=== PATIENT | male | born 1990 | race Caucasian/White ===

== ENCOUNTER 2017-03-05 22:26 | Inpatient (IN) | payer OTHER ==
--- NOTE | 2017-03-05 23:31 | ED PDOC ---
HPI: Psych/Substance Abuse Time Seen by Provider: 03/05/17 22:45 Chief Complaint (Nursing): Psychiatric Evaluation Chief Complaint (Provider): depressed History Per: Patient History/Exam Limitations: no limitations Onset/Duration Of Symptoms: Days Current Symptoms Are (Timing): Still Present Additional History Per: Patient Additional Complaint(s): 27 y/o male history of depression, anxiety presents for crisis eval. Patient states since he stopped taking his psych medications (because he could not afford them) he has been depressed. Patient states he moved here from [place] and since then has no drive or motivation to get a job or go to work when he has a job. He notes suicidal ideations intermittently, none at present. Denies suicidal/homicidal ideations, hallucinations, drug/alcohol use , acute medical complaints. Past Medical History Reviewed: Historical Data, Nursing Documentation, Vital Signs Vital Signs: Last Vital Signs Temp 99.7 F H 03/05/17 22:31 Pulse 79 03/05/17 22:31 Resp 18 03/05/17 22:31 BP 156/74 H 03/05/17 22:31 Pulse Ox 99 03/05/17 22:31 - Medical History PMH: Anxiety, Depression - Surgical History Surgical History: No Surg Hx - Family History Family History: States: No Known Family Hx - Living Arrangements Living Arrangements: With Family - Social History Current smoker - smoking cessation education provided: No Alcohol: None Drugs: Denies - Allergies Allergies/Adverse Reactions: Allergies Allergy/AdvReac Type Severity Reaction Status Date / Time No Known Allergies Allergy Verified 03/05/17 22:31 Review of Systems ROS Statement: Except As Marked, All Systems Reviewed And Found Negative Psych: Positive for: Depression Physical Exam - Reviewed Nursing Documentation Reviewed: Yes Vital Signs Reviewed: Yes - Physical Exam Appears: Positive for: Well, Non-toxic, No Acute Distress Head Exam: Positive for: ATRAUMATIC, NORMAL INSPECTION, NORMOCEPHALIC Skin: Positive for: Normal Color Eye Exam: Positive for: Normal appearance ENT: Positive for: Normal ENT Inspection Cardiovascular/Chest: Positive for: Regular Rate, Rhythm Respiratory: Positive for: Normal Breath Sounds Gastrointestinal/Abdominal: Positive for: Normal Exam Back: Positive for: Normal Inspection Extremity: Positive for: Normal ROM Neurologic/Psych: Positive for: Alert, Oriented - Laboratory Results Result Diagrams: 03/06/17 00:53 03/06/17 00:53 - ECG O2 Sat by Pulse Oximetry: 99 Pulse Ox Interpretation: Normal - Progress ED Course And Treament: Patient evaluated by direct support worker; to be admitted as per Dr. Garcia labs, urine ordered Medical Decision Making Medical Decision Making: Patient medically stable for psych admission Disposition - Clinical Impression Clinical Impression: Depression - Patient ED Disposition Is Patient to be Admitted: Yes - Disposition Disposition Time: 01:46 Condition: STABLE
[2017-03-06 00:58] LABS: BASO % 0.2 % (0.0-2.0); EOS % 0.4 % (0.0-4.0); HEMATOCRIT 45.6 % (35.0-51.0); LYMPH # 0.7 K/uL (1.0-4.3); LYMPH % 13.7 % (20.0-40.0); MEAN CELL VOLUME 89.8 fl (80.0-94.0); MEAN CORPUSCULAR HEMOGLOBIN 29.9 pg (27.0-31.0); MEAN CORPUSCULAR HGB CONC 33.3 g/dL (33.0-37.0); MEAN PLATELET VOLUME 10.2 fl (7.2-11.7); MONO % 20.4 % (0.0-10.0); NEUT # 3.3 K/uL (1.8-7.0); NEUT % 65.3 % (50.0-75.0); NRBC % 0.1 % (0.0-0.0); PLATELET COUNT 113 K/uL (130-400); RED CELL DISTRIBUTION WIDTH 13.4 % (11.5-14.5); WHITE BLOOD COUNT 5.1 K/uL (4.8-10.8)
[2017-03-06 01:06] LABS: ALB/GLOB RATIO 1.7 (1.0-2.1); ALCOHOL SERUM < 10 mg/dl (0-10); ALKALINE PHOSPHATASE 62 U/L (38-126); ALT/SGPT 40 U/L (21-72); AST/SGOT 45 U/L (17-59); BILIRUBIN,TOTAL 0.7 mg/dl (0.2-1.3); BLOOD UREA NITROGEN 10 mg/dl (9-20); CALCIUM 9.4 mg/dL (8.4-10.2); CARBON DIOXIDE 28 mmol/L (22-30); CHLORIDE 102 mmol/L (98-107); GFR AFRICAN-AMERICAN > 60; GLUCOSE,RANDOM 106 mg/dL (75-110); SODIUM 139 mmol/l (132-148); TOTAL PROTEIN 6.9 G/DL (6.3-8.2)
[2017-03-06 01:35] LABS: RBC URINE 1 /hpf (0-3); URINE BACTERIA RARE (<OCC); URINE BILIRUBIN NEGATIVE (NEGATIVE); URINE BLOOD NEGATIVE (NEGATIVE); URINE COLOR YELLOW (YELLOW); URINE GLUCOSE (UA) NEG (Normal); URINE KETONE NEGATIVE (NEGATIVE); URINE LEUKOCYTE ESTERASE NEG Leu/uL (Negative); URINE PROTEIN NEGATIVE (NEGATIVE); URINE UROBILINOGEN 0.2-1.0 mg/dL (0.2-1.0); WBC URINE 2 /hpf (0-5)
[2017-03-06 01:52] VITALS: O2SAT 99
--- NOTE | 2017-03-06 03:13 | PCM.BM ---
<Stefani Allison - Last Filed: 03/06/17 03:10> Treatment Plan Problems - Problems identified on initial assessmt Medication nonadherence Date Initiated: 03/06/17 Time Initiated: 03:11 Assessment reference: NA Status: Active Hopelessness/Helplessness Date Initiated: 03/06/17 Time Initiated: 03:12 Assessment reference: NA Status: Active Social Isolation Date Initiated: 03/06/17 Time Initiated: 03:13 Assessment reference: NA Status: Active Treatment assets and liabiliti Patient Assests: cooperative, educated, ADL independent, physically healthy, negotiates basic needs, cognitively intact Patient Liabilities: financial problems, substance abuse, other (Unemployed) - Milieu Protocol Maintain good personal hygiene: daily Encourage regular showers, daily Remind patient to perform daily oral care, every shift Assist patient to perform ADL's Maintain personal safety: every shift Educate patient to report safety concerns to staff, every shift Monitor environment for contraband/sharps Medication safety: Monitor for expected outcome, potential side effects: every shift, Assess barriers to learning: every shift, Assess readiness for medication education: every shift <Mac Lynn - Last Filed: 03/06/17 15:50> Family Contact Family involvement: Family/SO is involved Family contact: Patient agrees to contact, Family has been contacted by patient , Telephone contact initiated by staff Family contact name: Alvin White (Uncle, ) Family contacted how many times per week?: 2 - Goals for Treatment Patient goals for treatment: Hold a job, make better decisions. Discharge/Continuing Care - Education Needs Education Needs: Family Medication, Patient Medication, Patient Coping Skills, Patient Anger Management skills, Patient Community resources, Patient Aftercare Safety Plan - Discharge Discharge Criteria: Tolerates medication w/o severe side effects, Free of agitation, Normal sleep pattern Discharge to:: Other - Treatment Team Participation Was Patient/Family/SO present at Treatment Team Meeting: Yes <Sandra Whitley - Last Filed: 03/09/17 11:51> Discharge/Continuing Care - Additional Comments 03/09/17 11:47 Pt seen and discussed in team meeting. Reason for admission discussed. pt's progress on unit reviewed. Pt's medications reviewed and discussed. Pt's social and medical issues discussed. Pt relocated from [place] to [place]. Pt is currently homeless and from time to time staying with his uncle. Pt has limited support system. Pt informed that he is scheduled for discharge tomorrow, March 10. Pt agreeable. [employer] discussed referral to [facility] and agreeable. [facility] explained to pt. Pt also provided display card writer with verbal authorization to contact him uncleAlvin ([phone]) and inform him of discharge and after care. - Treatment Team Participation Discussed with Family/SO: No
[2017-03-06] MEDS ORDERED: DiphenhydrAMINE 50 mg/ml Inj IM PRN (03:24)
[2017-03-06] MEDS ORDERED: Alum-Mag Hydrox-Simethicone Susp (30 mL) PO PRN (03:24)
[2017-03-06] MEDS ORDERED: Magnesium Hydroxide Susp 30 ml UD PO PRN (03:24)
[2017-03-06 04:16] LABS: EOSINOPHIL 3 % (0-7); NEUTROPHIL 65 % (42-75); REACTIVE LYMPHOCYTES 1 % (0-0); TOTAL CELLS COUNTED 100
[2017-03-06 07:10] LABS: T4 7.62 ug/dl (5.5-11.0)
[2017-03-06 07:23] LABS: THYROID STIMULATING HORMONE 0.77 mIU/ML (0.46-4.68)
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
--- NOTE | 2017-03-06 17:28 | CP.PCM.CON ---
History of Present Illness - History of Present Illness History of Present Illness: 27 yo male with history of depression admitted in psyche unit because of worsening depression and suicidal thoughts. Review of Systems - Review of Systems All systems: reviewed and no additional remarkable complaints except (aside from those mentioned above, 12 point system review were negative by me) Past Patient History - Tetanus Immunizations Tetanus Immunization: Unknown - Past Medical History & Family History Past Medical History?: No Past Family History: Reviewed and not pertinent - Past Social History Smoking Status: Current Some Days Smoker Alcohol: Occasional Drugs: Cannabis (last used was a month ago) Home Situation {Lives}: Other (with uncle) - CARDIAC Hx Cardiac Disorders: No Hx Hypertension: No - PULMONARY Hx Respiratory Disorders: No Hx Tuberculosis: No - NEUROLOGICAL Hx Neurological Disorder: No HX Cerebrovascular Accident: No Hx Seizures: No - HEENT Hx HEENT Problems: No - RENAL Hx Chronic Kidney Disease: No - ENDOCRINE/METABOLIC Hx Endocrine Disorders: No - HEMATOLOGICAL/ONCOLOGICAL Hx Blood Disorders: No Hx Cancer: No Hx Human Immunodeficiency Virus (HIV): No - GENITOURINARY/GYNECOLOGICAL Hx Sexually Transmitted Disorders: No - PSYCHIATRIC Hx Anxiety: Yes Hx Depression: Yes Hx Substance Use: Yes (marijuana) Meds Allergies/Adverse Reactions: Allergies Allergy/AdvReac Type Severity Reaction Status Date / Time No Known Allergies Allergy Verified 03/05/17 22:31 - Medications Medications: Current Medications Acetaminophen (Tylenol 325mg Tab) 650 mg PO Q4 PRN PRN Reason: Pain, moderate (4-7) Al Hydrox/Mg Hydrox/Simethicone (Maalox Plus 30 Ml) 30 ml PO Q4 PRN PRN Reason: Dyspepsia Bupropion HCl (Wellbutrin Sr 150 Mg) 150 mg PO DAILY RUBY Diphenhydramine HCl (Benadryl) 50 mg IM Q6 PRN PRN Reason: Extrapyramidal S/S Unable PO Diphenhydramine HCl (Benadryl) 50 mg PO HS PRN PRN Reason: Sleep Haloperidol (Haldol) 5 mg PO Q4 PRN PRN Reason: Agitation Haloperidol Lactate (Haldol) 5 mg IM Q4 PRN PRN Reason: Agitation, Unable to Take PO Lorazepam (Ativan) 2 mg IM Q4 PRN PRN Reason: Anxiety/Agitation,Unable PO Lorazepam (Ativan) 2 mg PO Q4 PRN PRN Reason: agitation/anxiety Magnesium Hydroxide (Milk Of Magnesia) 30 ml PO HS PRN PRN Reason: Constipation Mirtazapine (Remeron) 15 mg PO HS RUBY Nicotine (Nicoderm Cq) 1 patch TD DAILY RUBY Last Admin: 03/06/17 15:10 Dose: 1 patch Physical Exam - Constitutional Appears: No Acute Distress - Head Exam Head Exam: ATRAUMATIC - Eye Exam Eye Exam: absent: Scleral icterus - ENT Exam ENT Exam: Mucous Membranes Moist - Neck Exam Neck exam: Negative for: Meningismus - Respiratory Exam Respiratory Exam: absent: Rhonchi, Wheezes, Respiratory Distress - Cardiovascular Exam Cardiovascular Exam: REGULAR RHYTHM, +S1, +S2 - GI/Abdominal Exam GI & Abdominal Exam: Soft. absent: Tenderness - Rectal Exam Rectal Exam: Deferred - Extremities Exam Extremities exam: Negative for: pedal edema - Back Exam Back exam: NORMAL INSPECTION - Neurological Exam Neurological exam: Alert, Oriented x3 - Psychiatric Exam Psychiatric exam: Normal Affect - Skin Skin Exam: Dry, Intact Results - Vital Signs Recent Vital Signs: Last Vital Signs Temp 96.9 F L 03/06/17 16:18 Pulse 58 L 03/06/17 16:18 Resp 18 03/06/17 16:18 BP 136/77 03/06/17 16:18 Pulse Ox 99 03/06/17 01:52 - Labs Result Diagrams: 03/06/17 00:53 03/06/17 00:53 Labs: Laboratory Results - last 24 hr 03/06/17 03/06/17 06:37 06:37 Hemoglobin A1c 5.1 Triglycerides 52 Cholesterol 112 LDL Cholesterol Direct 53 HDL Cholesterol 42 Thyroxine (T4) 7.62 Total T3 1.16 L TSH 3rd Generation 0.77 Assessment & Plan (1) Depression Status: Acute Comment: psyche is managing
[2017-03-07] MEDS: buPROPion SR 150 MG TABLET PO SCH (09:05)
--- NOTE | 2017-03-07 11:11 | PCM.PYCHPN ---
Psychiatric Progress Note - Psychiatric Progress Note Patient seen today, length of contact: Patient evaluated, case discussed with team, chart reviewed Patient Chief Complaint: "I'm okay" Problems Identified/Issues Discussed: No significant events overnight. Patient reports that he feels "okay." He states that he has chronic depression and that his mood fluctuates. No current suicidal thoughts at this time. No hallucinations. No adverse effects to medications reported. Medication Change: No Medical Record Reviewed: Yes Mental Status Examination - Cognitive Function Orientation: Person, Place, Situation, Time Memory: Intact Attention: WNL Concentration: WNL Association: WNL Fund of Knowledge: WNL - Mood Mood: Depressed - Affect Affect: Depressed - Speech Speech: Appropriate - Formal Thought Process Formal Thought Process: No Impairment Psychotic Thoughts and Behaviors: Denies AH/VH/paranoia/delusions - Suicidal Ideation Suicidal Ideation: No - Homicidal Ideation Homicidal Ideation: No Goal/Treatment Plan - Goal/Treatment Plan Need for Continued Stay: Remain at risks for inpatient hospitalization, Severe depression anxiety Progress Toward Problem(s) and Goals/Treatment Plan: Major Depressive Disorder, Recurrent -Continue Wellburtrin SR 150 mg PO Daily -Continue Remeron 15 mg PO HS -Individual and group therapy -Disposition planning Estimated Date of D/C: 03/10/17
[2017-03-07 16:34] VITALS: RESP 18
[2017-03-08] MEDS: buPROPion SR 150 MG TABLET PO SCH (09:21)
[2017-03-08] MEDS ORDERED: Benzocaine/Menthol (Cepacol) Lozenge PO PRN (10:07)
--- NOTE | 2017-03-08 10:08 | PCM.PYCHPN ---
Psychiatric Progress Note - Psychiatric Progress Note Patient seen today, length of contact: Patient evaluated, case discussed with team, chart reviewed Patient Chief Complaint: "I'm okay" Problems Identified/Issues Discussed: No significant events overnight. Patient reports that he has a sore throat and requested throat lozenges. Patient reports that he feels "okay" and that his mood is improving. No current suicidal thoughts at this time. No hallucinations. No adverse effects to medications reported. Medication Change: No Medical Record Reviewed: Yes Mental Status Examination - Cognitive Function Orientation: Person, Place, Situation, Time Memory: Intact Attention: WNL Concentration: WNL Association: [facility] Fund of Knowledge: [facility] Decription of patient's judgement and insights: Fair I/J - Mood Mood: Depressed - Affect Affect: Constricted - Speech Speech: Appropriate - Formal Thought Process Formal Thought Process: No Impairment Psychotic Thoughts and Behaviors: Denies AH/VH/paranoia/delusions - Suicidal Ideation Suicidal Ideation: No - Homicidal Ideation Homicidal Ideation: No Goal/Treatment Plan - Goal/Treatment Plan Need for Continued Stay: Remain at risks for inpatient hospitalization, Severe depression anxiety Progress Toward Problem(s) and Goals/Treatment Plan: Major Depressive Disorder, Recurrent -Continue Wellburtrin SR 150 mg PO Daily -Continue Remeron 15 mg PO HS -Individual and group therapy -Disposition planning Estimated Date of D/C: 03/09/17
[2017-03-09] MEDS: buPROPion SR 150 MG TABLET PO SCH (08:55)
--- NOTE | 2017-03-09 12:28 | PCM.PYCHPN ---
Psychiatric Progress Note - Psychiatric Progress Note Patient seen today, length of contact: in treatment team Patient Chief Complaint: i am depressed Problems Identified/Issues Discussed: pt reports feeling tired, low energy. he states he will be okay leaving the unit tomorrow. he is not sure where his uncle is living. he is agreeable to referral to the [facility] program. Medical Problems: prozac made pt more anxious/irritable. wellbutrin most helpful. Medication Change: No Medical Record Reviewed: Yes Mental Status Examination - Cognitive Function Orientation: Person, Place, Situation, Time Memory: Intact Attention: WNL Concentration: WNL Association: WNL Fund of Knowledge: [facility] Decription of patient's judgement and insights: fair Addtional comments: poor eye contact - Mood Mood: Depressed - Affect Affect: Constricted - Speech Speech: Appropriate - Formal Thought Process Formal Thought Process: No Impairment Psychotic Thoughts and Behaviors: denies a/v hallucinations - Suicidal Ideation Suicidal Ideation: No - Homicidal Ideation Homicidal Ideation: No Goal/Treatment Plan - Goal/Treatment Plan Need for Continued Stay: Remain at risks for inpatient hospitalization, Severe depression anxiety Progress Toward Problem(s) and Goals/Treatment Plan: major depression continue current treatment will increase the wellbutrin to 300mg am discharge tomorrow Estimated Date of D/C: 03/09/17
[2017-03-10 09:08] VITALS: BP 131/81; PULSE 66; TEMP 97.2
[2017-03-10] MEDS: buPROPion SR 150 MG TABLET PO SCH (09:13)
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
== END 2017-03-10 20:40 | disposition home or self-care (01) | DRG 885 ==
LOC: H.ER 22:26 → H.ERHOLD 03-06 01:46 → H.PSYCH 03-06 02:56
PROVIDERS: ADMIT Psychiatry & Neurology Psychiatry; ATTEND Psychiatry & Neurology Psychiatry
PROC: GZHZZZZ Group Psychotherapy (ICD-10-PCS; principal; 2017-03-06)
PROC: GZ58ZZZ Individual Psychotherapy, Cognitive-Behavioral (ICD-10-PCS; 2017-03-06)
DX: F33.1 Major depressive disorder, recurrent, moderate (principal); R45.851 Suicidal ideations; F12.10 Cannabis abuse, uncomplicated; F17.210 Nicotine dependence, cigarettes, uncomplicated; F41.9 Anxiety disorder, unspecified